=== PATIENT | male | born 1950 | race Caucasian/White ===

== ENCOUNTER 2024-03-12 16:03 | Emergency (ER) | payer MEDICARE | END 2024-03-12 16:45 | LOC: LL.ED 16:03 | DX: T83.091A Other mechanical complication of indwelling urethral catheter, initial encounter (principal); I25.10 Atherosclerotic heart disease of native coronary artery without angina pectoris; E78.00 Pure hypercholesterolemia, unspecified; Z95.5 Presence of coronary angioplasty implant and graft; E03.9 Hypothyroidism, unspecified; J44.9 Chronic obstructive pulmonary disease, unspecified; K21.9 Gastro-esophageal reflux disease without esophagitis; Z90.49 Acquired absence of other specified parts of digestive tract; Z88.8 Allergy status to other drugs, medicaments and biological substances; Z88.5 Allergy status to narcotic agent; Z79.890 Hormone replacement therapy; Z79.899 Other long term (current) drug therapy; Z79.51 Long term (current) use of inhaled steroids; Z79.82 Long term (current) use of aspirin; Z79.85 Long-term (current) use of injectable non-insulin antidiabetic drugs; Y73.2 Prosthetic and other implants, materials and accessory gastroenterology and urology devices associated with adverse incidents | CPT/HCPCS: 99284 ==

== ENCOUNTER 2024-05-15 11:08 | Emergency (ER) | payer OTHER, MEDICARE ==
[2024-05-15] MEDS ORDERED: Sodium Chloride 0.9% 10 ML Syringe FLUSH PRN (11:21)
[2024-05-15 11:31] LABS: BASOPHILS ABSOLUTE AUTO 0.03 K/uL (0.00-0.20); BASOPHILS PERCENT AUTO 0.5 % (0.0-2.0); EOSINOPHILS ABSOLUTE AUTO 0.33 K/uL (0.00-0.50); EOSINOPHILS PERCENT AUTO 5.9 % (0.0-5.0); HEMATOCRIT 41.8 % (39.0-49.0); HEMOGLOBIN 13.7 g/dL (13.1-16.8); LYMPHOCYTES PERCENT AUTO 16.1 % (10.0-50.0); MEAN CORPUSCULAR HEMOGLOBIN 33.3 pg (28.2-33.3); MEAN CORPUSCULAR HGB CONC 32.8 g/dL (31.7-36.0); MEAN CORPUSCULAR VOLUME 101.7 fL (84.0-98.0); MONOCYTES ABSOLUTE AUTO 0.53 K/uL (0.00-1.00); MONOCYTES PERCENT AUTO 9.5 % (2.0-14.0); NEUTROPHILS ABSOLUTE AUTO 3.81 K/uL (1.40-7.00); PLATELET COUNT,PLT 170 K/uL (150-350); RED BLOOD CELL COUNT 4.11 M/uL (4.33-5.41); RED CELL DISTRIBUTION WIDTH 13.6 % (11.2-14.1); WHITE BLOOD CELL COUNT,WBC 5.6 K/uL (4.0-10.2)
[2024-05-15 11:48] LABS: ALANINE AMINOTRANSFERASE,ALT 22 U/L (12-78); ALBUMIN 3.2 g/dL (3.4-5.0); ALKALINE PHOSPHATASE 115 IU/L (46-116); ASPARTATE AMNIOTRANSFERASE,AST 34 U/L (15-37); BILIRUBIN TOTAL 1.2 mg/dL (0.2-1.0); BLOOD UREA NITROGEN,BUN 15 mg/dL (7-18); CALCIUM 9.1 mg/dL (8.5-10.1); CARBON DIOXIDE,CO2 33.4 mmol/L (21.0-32.0); CHLORIDE,CL 100 mmol/L (98-107); CREATININE 0.78 mg/dL (0.51-1.17); GLUCOSE RANDOM 107 mg/dL (70-99); POTASSIUM,K 4.9 mmol/L (3.5-5.1); PROTEIN TOTAL,TP 6.9 g/dL (6.4-8.2); SODIUM,NA 137 mmol/L (136-145)
[2024-05-15 11:49] LABS: ANION GAP 8.5 meq/L (7-15); ESTIMATED GFR 94 mL/min (>=60)
[2024-05-15] MEDS: HYDROmorphone 0.5 MG/0.5 ML Syringe ONE (12:16)
[2024-05-15] MEDS: Lidocaine 2% with EPINEPHrine 1:100,000 20 ML MDV INJECT ONE (12:16)
[2024-05-15] MEDS: Ondansetron 4 MG/2 ML SDV ONE (12:16)
[2024-05-15] MEDS: Acetaminophen/HYDROcodone 325-5 MG Tab PO ONE (13:04)
[2024-05-15] MEDS: Diphtheria,Pertussis(Acell),Tetanus Vaccine 0.5 ML Syringe IM ONE (14:27)
== END 2024-05-15 14:55 ==
LOC: LL.ED 11:08
DX: S01.112A Laceration without foreign body of left eyelid and periocular area, initial encounter (principal); S60.221A Contusion of right hand, initial encounter; Z23 Encounter for immunization; K21.9 Gastro-esophageal reflux disease without esophagitis; E78.00 Pure hypercholesterolemia, unspecified; E03.9 Hypothyroidism, unspecified; Z88.8 Allergy status to other drugs, medicaments and biological substances; Z79.82 Long term (current) use of aspirin; Z79.84 Long term (current) use of oral hypoglycemic drugs; Z79.890 Hormone replacement therapy; Z79.899 Other long term (current) drug therapy; Z90.49 Acquired absence of other specified parts of digestive tract; W01.198A Fall on same level from slipping, tripping and stumbling with subsequent striking against other object, initial encounter
CPT/HCPCS: 12013; 36415; 70450; 71045; 72125; 73130-RT; 80053; 84484; 85025; 90471; 90715; 93005; 93010; 96374; 96375; 99284; 99284-25; A9270-GY; J1170; J2405; J3490

== ENCOUNTER 2024-05-24 20:10 | Emergency (ER) | payer MEDICARE ==
[2024-05-24 21:11] LABS: BASOPHILS ABSOLUTE AUTO 0.04 K/uL (0.00-0.20); BASOPHILS PERCENT AUTO 0.6 % (0.0-2.0); EOSINOPHILS ABSOLUTE AUTO 0.44 K/uL (0.00-0.50); HEMATOCRIT 37.6 % (39.0-49.0); HEMOGLOBIN 12.3 g/dL (13.1-16.8); LYMPHOCYTES PERCENT AUTO 19.1 % (10.0-50.0); MEAN CORPUSCULAR HEMOGLOBIN 33.3 pg (28.2-33.3); MEAN CORPUSCULAR HGB CONC 32.7 g/dL (31.7-36.0); MEAN CORPUSCULAR VOLUME 101.9 fL (84.0-98.0); MONOCYTES ABSOLUTE AUTO 0.62 K/uL (0.00-1.00); MONOCYTES PERCENT AUTO 9.9 % (2.0-14.0); NEUTROPHILS ABSOLUTE AUTO 3.98 K/uL (1.40-7.00); NEUTROPHILS PERCENT AUTO 63.4 % (45.0-80.0); PLATELET COUNT,PLT 179 K/uL (150-350); RED BLOOD CELL COUNT 3.69 M/uL (4.33-5.41); RED CELL DISTRIBUTION WIDTH 13.7 % (11.2-14.1); WHITE BLOOD CELL COUNT,WBC 6.3 K/uL (4.0-10.2)
[2024-05-24 21:30] LABS: PROTHROMBIN TIME 9.9 SEC (9.0-11.1)
[2024-05-24 21:38] LABS: ALANINE AMINOTRANSFERASE,ALT 25 U/L (12-78); ALKALINE PHOSPHATASE 106 IU/L (46-116); ANION GAP 3.2 meq/L (7-15); ASPARTATE AMNIOTRANSFERASE,AST 23 U/L (15-37); BILIRUBIN TOTAL 0.8 mg/dL (0.2-1.0); BLOOD UREA NITROGEN,BUN 18 mg/dL (7-18); C-REACTIVE PROTEIN 1.45 mg/dL (0.05-0.30); CALCIUM 8.4 mg/dL (8.5-10.1); CARBON DIOXIDE,CO2 31.8 mmol/L (21.0-32.0); CHLORIDE,CL 103 mmol/L (98-107); CREATINE KINASE,CK 190 U/L (26-308); CREATININE 1.01 mg/dL (0.51-1.17); ESTIMATED GFR 78 mL/min (>=60); GLUCOSE RANDOM 102 mg/dL (70-99); POTASSIUM,K 4.5 mmol/L (3.5-5.1); PRO B-TYPE NATRIUR PEPT,BNPPRO 142 pg/mL (0-125); PROTEIN TOTAL,TP 6.3 g/dL (6.4-8.2); SODIUM,NA 138 mmol/L (136-145)
[2024-05-24] MEDS: Cyclobenzaprine 10 MG Tab PO ONE (22:14)
== END 2024-05-24 22:50 ==
LOC: LL.ED 20:10
DX: E66.01 Morbid (severe) obesity due to excess calories (principal); Z68.43 Body mass index [BMI] 50.0-59.9, adult; I25.10 Atherosclerotic heart disease of native coronary artery without angina pectoris; E78.00 Pure hypercholesterolemia, unspecified; Z95.5 Presence of coronary angioplasty implant and graft; J44.9 Chronic obstructive pulmonary disease, unspecified; K21.9 Gastro-esophageal reflux disease without esophagitis; E03.9 Hypothyroidism, unspecified; Z90.49 Acquired absence of other specified parts of digestive tract; Z87.891 Personal history of nicotine dependence; Z79.82 Long term (current) use of aspirin; Z79.84 Long term (current) use of oral hypoglycemic drugs; Z79.899 Other long term (current) drug therapy; Z88.8 Allergy status to other drugs, medicaments and biological substances; Z88.5 Allergy status to narcotic agent; Z88.7 Allergy status to serum and vaccine
CPT/HCPCS: 36415; 80053; 82550; 83605; 83735; 83880; 84484; 85025; 85610; 86140; 99283; A9270-GY; J1642

== ENCOUNTER 2024-06-30 11:04 | Emergency (ER) | payer OTHER, MEDICARE ==
[2024-06-30] MEDS: Albuterol/Ipratropium 3.0-0.5 MG/3 ML Neb Soln NEB ONE ×2 (11:29→13:19)
[2024-06-30 12:00] LABS: BASOPHILS ABSOLUTE AUTO 0.03 K/uL (0.00-0.20); BASOPHILS PERCENT AUTO 0.3 % (0.0-2.0); EOSINOPHILS ABSOLUTE AUTO 0.25 K/uL (0.00-0.50); EOSINOPHILS PERCENT AUTO 2.7 % (0.0-5.0); HEMATOCRIT 41.4 % (39.0-49.0); HEMOGLOBIN 13.1 g/dL (13.1-16.8); LYMPHOCYTES ABSOLUTE AUTO 0.95 K/uL (0.50-3.50); LYMPHOCYTES PERCENT AUTO 10.4 % (10.0-50.0); MEAN CORPUSCULAR HEMOGLOBIN 32.6 pg (28.2-33.3); MEAN CORPUSCULAR HGB CONC 31.6 g/dL (31.7-36.0); MONOCYTES ABSOLUTE AUTO 0.91 K/uL (0.00-1.00); NEUTROPHILS ABSOLUTE AUTO 6.99 K/uL (1.40-7.00); NEUTROPHILS PERCENT AUTO 76.6 % (45.0-80.0); PLATELET COUNT,PLT 157 K/uL (150-350); RED BLOOD CELL COUNT 4.02 M/uL (4.33-5.41); WHITE BLOOD CELL COUNT,WBC 9.1 K/uL (4.0-10.2)
[2024-06-30 12:16] LABS: ALANINE AMINOTRANSFERASE,ALT 19 U/L (12-78); ALKALINE PHOSPHATASE 118 IU/L (46-116); ASPARTATE AMNIOTRANSFERASE,AST 16 U/L (15-37); BILIRUBIN TOTAL 1.4 mg/dL (0.2-1.0); BLOOD UREA NITROGEN,BUN 15 mg/dL (7-18); CALCIUM 8.7 mg/dL (8.5-10.1); CARBON DIOXIDE,CO2 30.3 mmol/L (21.0-32.0); CHLORIDE,CL 98 mmol/L (98-107); CREATININE 0.93 mg/dL (0.51-1.17); GLUCOSE RANDOM 122 mg/dL (70-99); POTASSIUM,K 4.2 mmol/L (3.5-5.1); PROTEIN TOTAL,TP 7.2 g/dL (6.4-8.2); SODIUM,NA 135 mmol/L (136-145)
[2024-06-30 12:17] LABS: CORONAVIRUS COVID-19 NAA NEGATIVE (NEGATIVE); INFLUENZA A NAA NEGATIVE (NEGATIVE); INFLUENZA B NAA NEGATIVE (NEGATIVE); RESPIRATORY SYNCYTIAL VIR NAA NEGATIVE (NEGATIVE)
[2024-06-30 12:18] LABS: ANION GAP 10.9 meq/L (7-15); ESTIMATED GFR 86 mL/min (>=60)
[2024-06-30 12:21] LABS: LACTIC ACID 1.6 mmol/L (0.4-2.0)
[2024-06-30] MEDS: cefTRIAXone 2 GM Vial IVPUSH STA (12:22)
[2024-06-30] MEDS: VANCOmycin 2 GM/400 ML 2 GM in Premix Bag 1 BAG IV STA (12:25)
[2024-06-30] MEDS: Sodium Chloride 0.9% 1,000 ML IV ONE (12:25)
[2024-06-30] MEDS: methylPREDNISolone Sodium Succinate 125 MG/2 ML SDV IVPUSH ONE (12:31)
[2024-06-30] MEDS: Sodium Chloride 0.9% 10 ML Syringe FLUSH PRN (12:32)
[2024-06-30 13:33] LABS: APPEARANCE,URINE CLEAR; BILIRUBIN,URINE NEGATIVE (NEGATIVE); COLOR,URINE YELLOW; GLUCOSE,URINE NEGATIVE (NEGATIVE); KETONES,URINE NEGATIVE (NEGATIVE); LEUKOCYTE ESTERASE,URINE NEGATIVE (NEGATIVE); NITRITE,URINE POSITIVE (NEGATIVE); OCCULT BLOOD,URINE TRACE-INTACT (NEGATIVE); PH,URINE 5.5 (5.0-9.0); PROTEIN,URINE 30 mg/dL (NEGATIVE); UROBILINOGEN,URINE 0.2 E.U./dL (0.2-1.0)
[2024-06-30 13:34] LABS: BACTERIA,URINE MODERATE /HPF (NONE TO FEW); EPITHELIAL CELLS,URINE NOT SEEN /LPF; RBC,URINE 0-5 /HPF; WBC,URINE 0-5 /HPF
[2024-06-30 14:20] LABS: PH VENOUS,POC 7.33 (7.31-7.41); PO2 VENOUS,POC 34 mmHg
[2024-06-30 14:21] LABS: HCO3 VENOUS,POC 30 mmol/L (23-28); O2 SATURATION VENOUS,POC 59 %
[2024-06-30 14:22] LABS: PCO2 VENOUS,POC 57 mmHg (41-51)
[2024-06-30] MEDS: Acetaminophen/HYDROcodone 325-5 MG Tab PO ONE (14:49)
== END 2024-06-30 14:50 ==
LOC: LL.ED 11:04
DX: J44.1 Chronic obstructive pulmonary disease with (acute) exacerbation (principal); J98.8 Other specified respiratory disorders; I10 Essential (primary) hypertension; I25.10 Atherosclerotic heart disease of native coronary artery without angina pectoris; E78.00 Pure hypercholesterolemia, unspecified; K21.9 Gastro-esophageal reflux disease without esophagitis; E11.9 Type 2 diabetes mellitus without complications; E03.9 Hypothyroidism, unspecified; E66.9 Obesity, unspecified; Z90.49 Acquired absence of other specified parts of digestive tract; Z79.899 Other long term (current) drug therapy; Z79.890 Hormone replacement therapy; Z79.891 Long term (current) use of opiate analgesic; Z79.82 Long term (current) use of aspirin; Z88.5 Allergy status to narcotic agent; Z88.8 Allergy status to other drugs, medicaments and biological substances
CPT/HCPCS: 0241U; 36415; 71045; 80053; 81001; 82803; 83605; 83735; 85025; 87040; 87086; 87088; 94640; 96365; 96366; 96375; 99284; 99285-25; A9270-GY; J0696; J2919; J3372; J3490; J7030; J7620-GY

== ENCOUNTER 2025-01-13 08:31 | Emergency (ER) | payer MEDICARE ==
[2025-01-13 09:26] LABS: BASOPHILS ABSOLUTE AUTO 0.04 K/uL (0.00-0.20); BASOPHILS PERCENT AUTO 0.6 % (0.0-2.0); EOSINOPHILS ABSOLUTE AUTO 0.28 K/uL (0.00-0.50); EOSINOPHILS PERCENT AUTO 4.5 % (0.0-5.0); HEMATOCRIT 42.1 % (39.0-49.0); HEMOGLOBIN 13.9 g/dL (13.1-16.8); IMMATURE GRAN ABSOLUTE AUTO 0.01 10^3/uL (0.00-0.04); IMMATURE GRAN PERCENT AUTO 0.2 % (0.0-0.4); LYMPHOCYTES ABSOLUTE AUTO 0.97 K/uL (0.50-3.50); LYMPHOCYTES PERCENT AUTO 15.5 % (10.0-50.0); MEAN CORPUSCULAR HEMOGLOBIN 32.9 pg (28.2-33.3); MEAN CORPUSCULAR VOLUME 99.5 fL (84.0-98.0); MONOCYTES ABSOLUTE AUTO 0.53 K/uL (0.00-1.00); MONOCYTES PERCENT AUTO 8.5 % (2.0-14.0); NEUTROPHILS ABSOLUTE AUTO 4.41 K/uL (1.40-7.00); NEUTROPHILS PERCENT AUTO 70.7 % (45.0-80.0); PLATELET COUNT,PLT 153 K/uL (150-350); RED BLOOD CELL COUNT 4.23 M/uL (4.33-5.41); RED CELL DISTRIBUTION WIDTH 12.9 % (11.2-14.1); WHITE BLOOD CELL COUNT,WBC 6.2 K/uL (4.0-10.2)
[2025-01-13 09:47] LABS: ALBUMIN 3.4 g/dL (3.4-5.0); CARBON DIOXIDE,CO2 36.8 mmol/L (21.0-32.0); CREATININE 0.99 mg/dL (0.51-1.17); EST CRCL DRUG DOSING (CG) 59.07 mL/min; MAGNESIUM 2.2 mg/dL (1.8-2.4); POTASSIUM,K 4.2 mmol/L (3.5-5.1); PROTEIN TOTAL,TP 6.9 g/dL (6.4-8.2)
[2025-01-13 09:56] LABS: ANION GAP 5.4 meq/L (7-15)
== END 2025-01-13 11:10 ==
LOC: LL.ED 08:31
DX: M54.2 Cervicalgia (principal); I25.10 Atherosclerotic heart disease of native coronary artery without angina pectoris; E78.00 Pure hypercholesterolemia, unspecified; I10 Essential (primary) hypertension; I25.2 Old myocardial infarction; Z95.5 Presence of coronary angioplasty implant and graft; J44.9 Chronic obstructive pulmonary disease, unspecified; E11.9 Type 2 diabetes mellitus without complications; E03.9 Hypothyroidism, unspecified; Z88.5 Allergy status to narcotic agent; Z88.8 Allergy status to other drugs, medicaments and biological substances; Z79.890 Hormone replacement therapy; Z79.899 Other long term (current) drug therapy; Z79.51 Long term (current) use of inhaled steroids; Z79.84 Long term (current) use of oral hypoglycemic drugs; W01.198A Fall on same level from slipping, tripping and stumbling with subsequent striking against other object, initial encounter; Y93.89 Activity, other specified
CPT/HCPCS: 36415; 70450; 72125; 72170; 80053; 83735; 85025; 99285

== ENCOUNTER 2025-01-22 03:04 | Emergency (ER) | payer OTHER ==
[2025-01-22] MEDS ORDERED: Naloxone 0.4 MG/ML SDV IVPUSH PRN (03:31)
[2025-01-22] MEDS: HYDROmorphone 0.5 MG/0.5 ML Syringe IVPUSH ONE (04:03)
[2025-01-22] MEDS: Sodium Chloride 0.9% 10 ML Syringe FLUSH PRN (04:03)
[2025-01-22 04:04] LABS: HEMOGLOBIN 13.3 g/dL (13.1-16.8); MEAN CORPUSCULAR VOLUME 99.3 fL (84.0-98.0); RED BLOOD CELL COUNT 4.13 M/uL (4.33-5.41)
[2025-01-22 04:05] LABS: BASOPHILS PERCENT AUTO 0.6 % (0.0-2.0); EOSINOPHILS PERCENT AUTO 4.6 % (0.0-5.0); IMMATURE GRAN PERCENT AUTO 0.1 % (0.0-0.4); LYMPHOCYTES PERCENT AUTO 13.9 % (10.0-50.0); MEAN CORPUSCULAR HEMOGLOBIN 32.2 pg (28.2-33.3); MEAN CORPUSCULAR HGB CONC 32.4 g/dL (31.7-36.0); MONOCYTES PERCENT AUTO 9.3 % (2.0-14.0); NEUTROPHILS PERCENT AUTO 71.5 % (45.0-80.0); PLATELET COUNT,PLT 157 K/uL (150-350)
[2025-01-22 04:06] LABS: BASOPHILS ABSOLUTE AUTO 0.04 K/uL (0.00-0.20); EOSINOPHILS ABSOLUTE AUTO 0.32 K/uL (0.00-0.50); IMMATURE GRAN ABSOLUTE AUTO 0.01 10^3/uL (0.00-0.04); LYMPHOCYTES ABSOLUTE AUTO 0.97 K/uL (0.50-3.50); MONOCYTES ABSOLUTE AUTO 0.65 K/uL (0.00-1.00); NEUTROPHILS ABSOLUTE AUTO 4.97 K/uL (1.40-7.00)
[2025-01-22 04:13] LABS: ALBUMIN 3.1 g/dL (3.4-5.0); ANION GAP 7.9 meq/L (7-15); CARBON DIOXIDE,CO2 31.8 mmol/L (21.0-32.0); CREATININE 0.77 mg/dL (0.51-1.17); EST CRCL DRUG DOSING (CG) 73.21 mL/min; POTASSIUM,K 4.7 mmol/L (3.5-5.1); PROTEIN TOTAL,TP 6.6 g/dL (6.4-8.2)
[2025-01-22 04:14] LABS: BILIRUBIN TOTAL 1.4 mg/dL (0.2-1.0)
[2025-01-22] MEDS: Iopamidol 612 MG/ML 100 ML Bottle IVPUSH ONE (04:15)
[2025-01-22] MEDS: HYDROmorphone 1 MG/ML Syringe IVPUSH ONE (04:27)
[2025-01-22 05:16] LABS: APPEARANCE,URINE TURBID (CLEAR); COLOR,URINE YELLOW (YELLOW)
[2025-01-22 05:17] LABS: BILIRUBIN,URINE NEGATIVE (NEGATIVE); GLUCOSE,URINE NEGATIVE (NEGATIVE); KETONES,URINE NEGATIVE (NEGATIVE); LEUKOCYTE ESTERASE,URINE TRACE (NEGATIVE); NITRITE,URINE POSITIVE (NEGATIVE); OCCULT BLOOD,URINE MODERATE (NEGATIVE); PROTEIN,URINE NEGATIVE (NEGATIVE); UROBILINOGEN,URINE 0.2 E.U./dL (0.2-1.0)
[2025-01-22 05:18] LABS: BACTERIA,URINE FEW /HPF (NONE TO FEW); HYALINE CASTS,URINE FEW
[2025-01-24 15:47] LABS: %PSA FREE <20 %; PSA 0.5 ng/mL (0.0-4.0); PSA FREE <0.1 ng/mL
== END 2025-01-22 06:15 ==
LOC: LL.ED 03:04
DX: N30.90 Cystitis, unspecified without hematuria (principal); M16.0 Bilateral primary osteoarthritis of hip; I25.10 Atherosclerotic heart disease of native coronary artery without angina pectoris; E78.00 Pure hypercholesterolemia, unspecified; I10 Essential (primary) hypertension; I25.2 Old myocardial infarction; Z95.5 Presence of coronary angioplasty implant and graft; E11.9 Type 2 diabetes mellitus without complications; E03.9 Hypothyroidism, unspecified; Z88.8 Allergy status to other drugs, medicaments and biological substances; Z88.5 Allergy status to narcotic agent; Z79.899 Other long term (current) drug therapy; Z79.890 Hormone replacement therapy; Z79.84 Long term (current) use of oral hypoglycemic drugs; Z93.59 Other cystostomy status
CPT/HCPCS: 36415; 74178; 80053; 81001; 84153; 84154; 85025; 87086; 87088; 96374; 99285; J1171; Q9967; 87186

== ENCOUNTER 2025-02-06 08:37 | Emergency (ER) | payer MEDICARE ==
[2025-02-06] MEDS: Acetaminophen/HYDROcodone 325-10 MG Tab PO ONE (10:02)
[2025-02-06] MEDS: Cyclobenzaprine 10 MG Tab PO ONE (10:03)
== END 2025-02-06 12:04 ==
LOC: LL.ED 08:37
DX: M25.551 Pain in right hip (principal); I25.10 Atherosclerotic heart disease of native coronary artery without angina pectoris; I10 Essential (primary) hypertension; J44.9 Chronic obstructive pulmonary disease, unspecified; K21.9 Gastro-esophageal reflux disease without esophagitis; E11.9 Type 2 diabetes mellitus without complications; E03.9 Hypothyroidism, unspecified; E78.00 Pure hypercholesterolemia, unspecified; E66.9 Obesity, unspecified; Z79.899 Other long term (current) drug therapy; Z79.82 Long term (current) use of aspirin; Z79.84 Long term (current) use of oral hypoglycemic drugs; Z88.8 Allergy status to other drugs, medicaments and biological substances; Z88.5 Allergy status to narcotic agent
CPT/HCPCS: 72192; 99285; A9270-GY

== ENCOUNTER 2025-03-21 04:32 | Emergency (ER) | payer OTHER ==
[2025-03-21] MEDS: Acetaminophen/HYDROcodone 325-10 MG Tab PO ONE (05:44)
== END 2025-03-21 07:15 ==
LOC: LL.ED 04:32
DX: S01.312A Laceration without foreign body of left ear, initial encounter (principal); I10 Essential (primary) hypertension; E03.9 Hypothyroidism, unspecified; K21.9 Gastro-esophageal reflux disease without esophagitis; E11.9 Type 2 diabetes mellitus without complications; E78.00 Pure hypercholesterolemia, unspecified; Z88.8 Allergy status to other drugs, medicaments and biological substances; Z79.899 Other long term (current) drug therapy; Z79.890 Hormone replacement therapy; Z79.84 Long term (current) use of oral hypoglycemic drugs; Z90.49 Acquired absence of other specified parts of digestive tract; W19.XXXA Unspecified fall, initial encounter
CPT/HCPCS: 12013; 99285; A9270-GY; J2003

== ENCOUNTER 2025-03-24 23:31 | Emergency (ER) | payer MEDICARE ==
[2025-03-25 00:21] LABS: BASOPHILS ABSOLUTE AUTO 0.02 K/uL (0.00-0.20); BASOPHILS PERCENT AUTO 0.3 % (0.0-2.0); EOSINOPHILS ABSOLUTE AUTO 0.15 K/uL (0.00-0.50); EOSINOPHILS PERCENT AUTO 2.2 % (0.0-5.0); IMMATURE GRAN ABSOLUTE AUTO 0.02 10^3/uL (0.00-0.04); IMMATURE GRAN PERCENT AUTO 0.3 % (0.0-0.4); LYMPHOCYTES ABSOLUTE AUTO 1.02 K/uL (0.50-3.50); LYMPHOCYTES PERCENT AUTO 15.1 % (10.0-50.0); MONOCYTES ABSOLUTE AUTO 0.50 K/uL (0.00-1.00); MONOCYTES PERCENT AUTO 7.4 % (2.0-14.0); NEUTROPHILS ABSOLUTE AUTO 5.04 K/uL (1.40-7.00); NEUTROPHILS PERCENT AUTO 74.7 % (45.0-80.0); PLATELET COUNT,PLT 156 K/uL (150-350); RED BLOOD CELL COUNT 3.64 M/uL (4.33-5.41); RED CELL DISTRIBUTION WIDTH 14.5 % (11.2-14.1); WHITE BLOOD CELL COUNT,WBC 6.8 K/uL (4.0-10.2)
[2025-03-25 00:28] LABS: INR 1.0
[2025-03-25 00:45] LABS: ALANINE AMINOTRANSFERASE,ALT 18 U/L (12-78); ASPARTATE AMNIOTRANSFERASE,AST 18 U/L (15-37); BILIRUBIN TOTAL 0.9 mg/dL (0.2-1.0); BLOOD UREA NITROGEN,BUN 12 mg/dL (7-18); CARBON DIOXIDE,CO2 31.2 mmol/L (21.0-32.0); CHLORIDE,CL 102 mmol/L (98-107); CREATININE 0.94 mg/dL (0.51-1.17); GLUCOSE RANDOM 133 mg/dL (70-99); POTASSIUM,K 3.4 mmol/L (3.5-5.1); PRO B-TYPE NATRIUR PEPT,BNPPRO 157 pg/mL (0-125); PROTEIN TOTAL,TP 5.9 g/dL (6.4-8.2); SODIUM,NA 140 mmol/L (136-145)
[2025-03-25 00:48] LABS: ESTIMATED GFR 85 mL/min (>=60)
== END 2025-03-25 01:15 ==
LOC: LL.ED 23:31
DX: Z04.3 Encounter for examination and observation following other accident (principal); I10 Essential (primary) hypertension; K21.9 Gastro-esophageal reflux disease without esophagitis; E78.00 Pure hypercholesterolemia, unspecified; E66.9 Obesity, unspecified; E03.9 Hypothyroidism, unspecified; E11.9 Type 2 diabetes mellitus without complications; Z88.8 Allergy status to other drugs, medicaments and biological substances; Z79.82 Long term (current) use of aspirin; Z79.84 Long term (current) use of oral hypoglycemic drugs; Z79.890 Hormone replacement therapy; Z79.899 Other long term (current) drug therapy; Z90.49 Acquired absence of other specified parts of digestive tract; W19.XXXA Unspecified fall, initial encounter
CPT/HCPCS: 36415; 80053; 82947; 83735; 83880; 85025; 85610; 93005; 99285

== ENCOUNTER 2025-04-21 07:48 | Emergency (ER) | payer OTHER ==
[2025-04-21] MEDS: Acetaminophen/HYDROcodone 325-10 MG Tab PO ONE (08:20)
== END 2025-04-21 09:40 ==
LOC: LL.ED 07:48
DX: S81.811A Laceration without foreign body, right lower leg, initial encounter (principal); S09.90XA Unspecified injury of head, initial encounter; I25.10 Atherosclerotic heart disease of native coronary artery without angina pectoris; E78.00 Pure hypercholesterolemia, unspecified; I10 Essential (primary) hypertension; E11.9 Type 2 diabetes mellitus without complications; E03.9 Hypothyroidism, unspecified; J44.9 Chronic obstructive pulmonary disease, unspecified; Z88.5 Allergy status to narcotic agent; Z88.8 Allergy status to other drugs, medicaments and biological substances; Z79.890 Hormone replacement therapy; Z79.899 Other long term (current) drug therapy; Z79.84 Long term (current) use of oral hypoglycemic drugs; Z95.5 Presence of coronary angioplasty implant and graft; W01.198A Fall on same level from slipping, tripping and stumbling with subsequent striking against other object, initial encounter; Y93.89 Activity, other specified
CPT/HCPCS: 70450; 99284; A9270-GY

== ENCOUNTER 2025-04-29 22:06 | Emergency (ER) | payer OTHER ==
[2025-04-29] MEDS ORDERED: Sodium Chloride 0.9% 10 ML Syringe FLUSH PRN (22:12)
[2025-04-29 22:30] LABS: BASOPHILS ABSOLUTE AUTO 0.02 K/uL (0.00-0.20); BASOPHILS PERCENT AUTO 0.5 % (0.0-2.0); EOSINOPHILS ABSOLUTE AUTO 0.06 K/uL (0.00-0.50); EOSINOPHILS PERCENT AUTO 1.5 % (0.0-5.0); IMMATURE GRAN ABSOLUTE AUTO 0.01 10^3/uL (0.00-0.04); IMMATURE GRAN PERCENT AUTO 0.3 % (0.0-0.4); LYMPHOCYTES ABSOLUTE AUTO 0.41 K/uL (0.50-3.50); LYMPHOCYTES PERCENT AUTO 10.3 % (10.0-50.0); MONOCYTES ABSOLUTE AUTO 0.35 K/uL (0.00-1.00); MONOCYTES PERCENT AUTO 8.8 % (2.0-14.0); NEUTROPHILS ABSOLUTE AUTO 3.15 K/uL (1.40-7.00); NEUTROPHILS PERCENT AUTO 78.6 % (45.0-80.0); PLATELET COUNT,PLT 159 K/uL (150-350); RED BLOOD CELL COUNT 3.67 M/uL (4.33-5.41); RED CELL DISTRIBUTION WIDTH 14.0 % (11.2-14.1); WHITE BLOOD CELL COUNT,WBC 4.0 K/uL (4.0-10.2)
[2025-04-29 22:54] LABS: LACTIC ACID 1.1 mmol/L (0.4-2.0)
[2025-04-29 23:00] LABS: ALANINE AMINOTRANSFERASE,ALT 19 U/L (12-78); ASPARTATE AMNIOTRANSFERASE,AST 18 U/L (15-37); BILIRUBIN TOTAL 1.1 mg/dL (0.2-1.0); BLOOD UREA NITROGEN,BUN 11 mg/dL (7-18); CARBON DIOXIDE,CO2 31.8 mmol/L (21.0-32.0); CHLORIDE,CL 100 mmol/L (98-107); CREATININE 0.74 mg/dL (0.51-1.17); ESTIMATED GFR 94 mL/min (>=60); GLUCOSE RANDOM 84 mg/dL (70-99); POTASSIUM,K 4.1 mmol/L (3.5-5.1); PROTEIN TOTAL,TP 6.6 g/dL (6.4-8.2); SODIUM,NA 139 mmol/L (136-145)
== END 2025-04-30 00:05 ==
LOC: LL.ED 22:06
DX: L03.115 Cellulitis of right lower limb (principal); J22 Unspecified acute lower respiratory infection; E66.01 Morbid (severe) obesity due to excess calories; I25.10 Atherosclerotic heart disease of native coronary artery without angina pectoris; E78.00 Pure hypercholesterolemia, unspecified; I10 Essential (primary) hypertension; Z95.5 Presence of coronary angioplasty implant and graft; E11.9 Type 2 diabetes mellitus without complications; E03.9 Hypothyroidism, unspecified; J44.9 Chronic obstructive pulmonary disease, unspecified; Z88.5 Allergy status to narcotic agent; Z88.8 Allergy status to other drugs, medicaments and biological substances; Z79.890 Hormone replacement therapy; Z79.899 Other long term (current) drug therapy; Z79.51 Long term (current) use of inhaled steroids; Z79.82 Long term (current) use of aspirin
CPT/HCPCS: 36415; 71046; 80053; 83605; 85025; 87040; 87428; 96360; 99284; 99285; A9270; J7030

== ENCOUNTER 2025-05-30 06:02 | Emergency (ER) | payer OTHER ==
[2025-05-30 06:56] LABS: BASOPHILS ABSOLUTE AUTO 0.03 K/uL (0.00-0.20); BASOPHILS PERCENT AUTO 0.6 % (0.0-2.0); EOSINOPHILS ABSOLUTE AUTO 0.32 K/uL (0.00-0.50); EOSINOPHILS PERCENT AUTO 6.2 % (0.0-5.0); IMMATURE GRAN ABSOLUTE AUTO 0.01 10^3/uL (0.00-0.04); IMMATURE GRAN PERCENT AUTO 0.2 % (0.0-0.4); LYMPHOCYTES ABSOLUTE AUTO 0.85 K/uL (0.50-3.50); LYMPHOCYTES PERCENT AUTO 16.5 % (10.0-50.0); MONOCYTES ABSOLUTE AUTO 0.45 K/uL (0.00-1.00); MONOCYTES PERCENT AUTO 8.8 % (2.0-14.0); NEUTROPHILS ABSOLUTE AUTO 3.48 K/uL (1.40-7.00); NEUTROPHILS PERCENT AUTO 67.7 % (45.0-80.0); PLATELET COUNT,PLT 145 K/uL (150-350); RED BLOOD CELL COUNT 3.68 M/uL (4.33-5.41); RED CELL DISTRIBUTION WIDTH 14.1 % (11.2-14.1); WHITE BLOOD CELL COUNT,WBC 5.1 K/uL (4.0-10.2)
[2025-05-30 07:22] LABS: INR 1.0 (0.9-1.1); PTT,PARTIAL THROMBOPLSTIN TIME 27.2 SEC (23.8-34.4)
[2025-05-30 07:23] LABS: BLOOD UREA NITROGEN,BUN 13 mg/dL (7-18); CARBON DIOXIDE,CO2 30.6 mmol/L (21.0-32.0); CHLORIDE,CL 105 mmol/L (98-107); CREATININE 0.83 mg/dL (0.51-1.17); GLUCOSE RANDOM 87 mg/dL (70-99); POTASSIUM,K 4.0 mmol/L (3.5-5.1); PRO B-TYPE NATRIUR PEPT,BNPPRO 131 pg/mL (0-125); SODIUM,NA 142 mmol/L (136-145)
[2025-05-30 07:28] LABS: ESTIMATED GFR 91 mL/min (>=60)
== END 2025-05-30 09:24 ==
LOC: LL.ED 06:02
DX: S01.01XA Laceration without foreign body of scalp, initial encounter (principal); I10 Essential (primary) hypertension; K21.9 Gastro-esophageal reflux disease without esophagitis; E78.00 Pure hypercholesterolemia, unspecified; E66.9 Obesity, unspecified; E11.9 Type 2 diabetes mellitus without complications; E03.9 Hypothyroidism, unspecified; Z88.8 Allergy status to other drugs, medicaments and biological substances; Z79.890 Hormone replacement therapy; Z79.82 Long term (current) use of aspirin; Z79.84 Long term (current) use of oral hypoglycemic drugs; Z79.899 Other long term (current) drug therapy; Z90.49 Acquired absence of other specified parts of digestive tract; W19.XXXA Unspecified fall, initial encounter
CPT/HCPCS: 36415; 70450; 72125; 80048; 83735; 83880; 85025; 85610; 85730; 99285; J2003